=== PATIENT | male | born 1950 | race Caucasian/White ===

== ENCOUNTER 2021-01-09 16:31 | Emergency (ER) | payer MEDICARE, OTHER ==
[~2021-01-09] VITALS: Ht 188 cm; Wt 86.3 kg
[~2021-01-09 16:31] MED LIST: NEFA200T PO; OLAN10TA69 PO; RISP0.253 PO
--- NOTE | 2021-01-09 18:37 | NUR ---
Pt has been in trundelenberg while in the ER after MD Vargas reduced hernia at approx 1715. Pt sat up to take shirt off and hernia bulged again. Pt denies pain. MD Vargas back to bedside to reduce hernia again and apply abd binder.
[2021-01-09 18:43] VITALS: BP 133/92
== END 2021-01-09 19:10 | disposition home or self-care (01) ==
LOC: ED 17:01
DX: K43.9 Ventral hernia without obstruction or gangrene (principal); K42.9 Umbilical hernia without obstruction or gangrene
CPT/HCPCS: 99283